=== PATIENT | female | born 1965 | race Two or more races ===

== ENCOUNTER 2024-10-15 09:46 | Day surgery (SDC) | payer OTHER ==
[2024-10-06 08:37] LABS: HEMATOCRIT 37.2 % (36.0-45.00); HEMOGLOBIN 12.9 g/dL (12.0-15.00); MEAN CELL VOLUME 90.1 fL (80.00-100.00); MEAN CORPUSCULAR HEMOGLOBIN 31.1 pg (27.00-32.0); MEAN CORPUSCULAR HGB CONC 34.6 g/dl (32.0-36.0); PLATELET COUNT 446 K/uL (150-450); RED BLOOD COUNT 4.13 M/uL (4.00-6.00); RED CELL DISTRIBUTION WIDTH 13.2 % (11.5-14.5)
[2024-10-06 08:38] VITALS: BP 160/82
[2024-10-06 08:59] LABS: INR 1.02; PARTIAL THROMBOPLASTIN TIME 28.8 SECONDS (22.0-34.0); PROTHROMBIN TIME 11.1 SECONDS (9.0-11.5)
[2024-10-06 09:28] LABS: ALBUMIN 3.8 gm/dL (3.4-5.0); CALCIUM 9.2 mg/dL (8.5-10.1); CREATININE SERUM 0.69 mg/dL (0.55-1.02); GFR 87.38; PHOSPHOROUS 3.5 mg/dL (2.5-4.9); POTASSIUM 4.54 mEq/L (3.5-5.1)
[2024-10-06 10:27] LABS: URINE APPEARANCE Clear; URINE BILIRRUBIN Negative (NEGATIVE); URINE BLOOD Negative; URINE COLOR Yellow; URINE GLUCOSE Negative (NEGATIVE); URINE KETONE Negative (NEGATIVE); URINE LEUKOCYTE Negative; URINE NITRATE Negative; URINE PROTEIN Negative (NEGATIVE)
[2024-10-06 10:29] LABS: URINE BACTERIA 58.7 uL (0.0-1933); URINE EPITHELIAL CELLS 7.4 uL (0.0-38.8); URINE RBC 30.3 uL (0.0-20.8); URINE WBC 3.9 uL (0.0-23.2)
[2024-10-06 10:41] LABS: URINE CAST 0.44 uL (0.0-1.40)
[~2024-10-15] VITALS: Ht 157.5 cm; Wt 61.7 kg
[~2024-10-15 09:46] MED LIST: LEVO-T125 MCG PO; ROSUVASTATIN CA10 MG PO; TELMISARTAN40 MG PO; TOPROL XL100 M1 PO
[2024-10-15] MEDS ORDERED: POVIDONE-IODINE 118 ML BOTT TOP ONE (13:04)
[2024-10-15] MEDS ORDERED: CEFAZOLIN SODIUM 1,000 MG VIAL ONE (13:04)
[2024-10-15] MEDS ORDERED: DEXAMETHASONE SODIUM PHOSPHATE 4 MG/ML VIAL ONE (13:06)
[2024-10-15] MEDS ORDERED: DIPHENHYDRAMINE HCL 50 MG/ML VIAL 1ML ONE (14:02)
[2024-10-15] MEDS ORDERED: CIPROFLOXACIN HCL 0.175 MG/DR DROPS OTIC ONE (15:30)
[2024-10-15] MEDS ORDERED: CIPROFLOXACIN2.5 ML OTIC (16:00)
[2024-10-15] MEDS ORDERED: CLEOCIN HCL300 MG PO (16:01)
== END 2024-10-15 17:40 | disposition home or self-care (01) ==
LOC: CIR.AMB 09:46
PROVIDERS: ATTEND Otolaryngology Otology & Neurotology
DX: H71.21 Cholesteatoma of mastoid, right ear (principal); H72.11 Attic perforation of tympanic membrane, right ear; H90.11 Conductive hearing loss, unilateral, right ear, with unrestricted hearing on the contralateral side; H74.21 Discontinuity and dislocation of right ear ossicles; Z88.0 Allergy status to penicillin; I10 Essential (primary) hypertension; E03.8 Other specified hypothyroidism

== ENCOUNTER 2025-08-26 08:03 | Emergency (ER) | payer OTHER ==
[~2025-08-26] VITALS: Ht 157.5 cm; Wt 61.2 kg
[~2025-08-26 08:03] MED LIST changes: +CIPROFLOXACIN2.5 ML OTIC; +CLEOCIN HCL300 MG PO
[2025-08-26] MEDS ORDERED: FAMOTIDINE/PF 20 MG in 0.9 % SODIUM CHLORIDE 8 ML IV PUSH STA (10:17)
[2025-08-26] MEDS ORDERED: ONDANSETRON HCL 2 MG/ML VIAL IV ONE (10:30)
[2025-08-26] MEDS ORDERED: RINGERS SOLUTION,LACTATED 1,000 ML IV SCH (10:30)
[2025-08-26] MEDS ORDERED: FAMOTIDINE/PF 20 MG/2 ML VIAL ONE (10:42)
[2025-08-26] MEDS ORDERED: ONDANSETRON HCL 2 MG/ML VIAL ONE (10:42)
[2025-08-26 11:52] LABS: BASO % 0.7 % (0.1-1.2); EOS # 0.01 (0.04-0.54); EOS % 0.1 % (0.7-7.0); LYMPH # 1.51 (1.18-3.74); LYMPH % 22.4 % (19.3-53.1); MEAN PLATELET VOLUME 8.60 fl (9.4-12.4); MONO # 1.17 (0.24-0.82); NEUT # 3.99 (1.56-6.13); NEUT % 59.2 % (34.0-71.1); RED CELL DISTRIBUTION WIDTH 12.3 % (11.6-14.4)
[2025-08-26 11:57] LABS: MONO % 17.3 % (4.7-12.5)
[2025-08-26 12:00] LABS: COVID-19 AG NEGATIVE (NEGATIVE)
[2025-08-26 12:40] LABS: ALT/SGPT 21.0 U/L (12-78); AST/SGOT 20.0 U/L (15-37); BILIRUBIN TOTAL 0.77 mg/dL (0.3-1.2); BUN CREA RATIO 21.0 (7.0-25.0); CREATININE SERUM 0.61 mg/dL (0.55-1.02); GFR 100.39; GLOBULINA 4.1 G/DL (2.4-3.5); GLUCOSE FASTING 94.0 mg/dL (65-100); OSMOLALITY SERUM 274.0 MOSM/KG (275-295)
[2025-08-26 15:53] LABS: URINE APPEARANCE Clear; URINE BILIRRUBIN Negative (NEGATIVE); URINE BLOOD Moderate; URINE COLOR Yellow; URINE GLUCOSE Negative (NEGATIVE); URINE LEUKOCYTE Negative; URINE NITRATE Negative; URINE PROTEIN Trace (NEGATIVE); URINE UROBILINOGEN 0.2 E.U./dl
[2025-08-26 16:24] LABS: URINE EPITHELIAL CELLS 52.3 uL (0.0-38.8); URINE RBC 102.8 uL (0.0-20.8); URINE WBC 8.8 uL (0.0-23.2)
[2025-08-26 16:36] LABS: URINE CAST 0.00 uL (0.0-1.40); URINE KETONE 80 (NEGATIVE); URINE MUCUS SCANT
== END 2025-08-26 21:04 | disposition home or self-care (01) ==
LOC: ER 08:04
PROVIDERS: General Practice
DX: K52.89 Other specified noninfective gastroenteritis and colitis (principal); I10 Essential (primary) hypertension; E03.9 Hypothyroidism, unspecified; Z20.822 Contact with and (suspected) exposure to COVID-19; Z88.0 Allergy status to penicillin